=== PATIENT | female | born 1995 | race Caucasian/White ===

== ENCOUNTER 2017-02-12 12:15 | Emergency (ER) | payer BC ==
[2017-02-12 12:20] VITALS: BP 120/81; PULSE 107; RESP 22; TEMP 98.1; O2SAT 97
[2017-02-12 12:30] VITALS: PULSE 106; RESP 16
[2017-02-12] MEDS ORDERED: birth control PO (13:09)
[2017-02-12] MEDS ORDERED: TETANUS/DIPHTHERIA TOXOID ADULT 0.5 ML VIAL IM ONE (13:30)
[2017-02-12] MEDS ORDERED: AMOXICILLIN/CLAVULANATE K 875 MG TAB PO ONE (13:30)
--- NOTE | 2017-02-12 13:54 | PD ---
HPI Chief Complaint: Bite or Sting Time Seen by Provider: 13:35 Travel History International Travel<30 days: No Contact w/Intl Traveler<30days: No Traveled to known affect area: No History of Present Illness HPI 21-year-old female presents to the emergency room for evaluation of dog bite to her head, hands, and face that occurred just prior to arrival. Patient was lying next to her dog when she turned the wrong way and it attacked her. It bit her on the back of the head, bilateral hands, and one small bite on the side of her face. They all bled a moderate amount. Patient came straight to the emergency room. She reports extreme pain in the left second finger which feels swollen and is difficult to bend. She denies paresthesias. Unknown last tetanus. Dog is up-to-date on vaccinations. Patient denies chronic medical conditions or daily medications. PFSH Past Medical History Medical History: Denies Significant Hx Tetanus Vaccination: > 5 Years Influenza Vaccination: No ?: Not LMP: 02/12/17 Past Surgical History Surgical History: No Previous Surgery Social History Alcohol Use: No Tobacco Use: No Substance Use: No Allergies-Medications (Allergen,Severity, Reaction): Coded Allergies: No Known Allergies (Unverified , 02/12/17) Reported Meds & Prescriptions Reported Meds & Active Scripts Active Augmentin (Amoxicillin-Clavulanate) 875-125 Mg Tab 1 Tab PO BID 10 Days Reported [ control] Unknown Strength Unknown Dose PO DAILY Review of Systems Except as stated in HPI: all other systems reviewed are Neg Physical Exam Narrative GENERAL: Well-nourished, well-developed female in no acute distress. Afebrile. Ambulatory. SKIN: Focused skin assessment warm/dry. There are 4 1 cm lacerations to the posterior scalp that are nonbleeding and well approximated. There are several puncture wounds to bilateral hands. There is a 0.5 cm vertical laceration just lateral to the right eye. HEAD: Normocephalic. EYES: No scleral icterus. No injection or drainage. NECK: Supple, trachea midline. No JVD or lymphadenopathy. CARDIOVASCULAR: Regular rate and rhythm without murmurs, gallops, or rubs. RESPIRATORY: Breath sounds equal bilaterally. No accessory muscle use. EXTREMITY: Left finger tender to palpation. Limited range of motion secondary to pain. Mild edema of the left second finger. Less than 2 second capillary refill distally. Data Data Last Documented VS Vital Signs Date Time Temp Pulse Resp B/P Pulse Ox O2 Delivery O2 Flow Rate FiO2 02/12/17 14:43 87 16 109/68 97 Room Air 02/12/17 12:20 98.1 Orders Amoxicil-Clavulanate (Augmentin) (02/12/17 13:30) Tetanus/Diphtheria Tox Adult (Tetanus/Di (02/12/17 13:30) Wound Care (02/12/17 13:29) Finger ([id number]) (02/12/17 ) MDM Medical Decision Making Medical Screen Exam Complete: Yes Emergency Medical Condition: Yes Medical Record Reviewed: Yes Differential Diagnosis Dog bite, laceration, abrasion, fracture Narrative Course 21-year-old female presents to the emergency room after being bitten by her dog just prior to arrival. Dog is up-to-date on rabies. Patient was updated on tetanus. Wounds were all thoroughly cleansed with Betadine and hand wounds were dressed with triple antibiotic ointment. Patient has a small, 0.5 cm wound on her right lateral face. This was thoroughly cleansed and then repaired with Steri-Strips. Patient was given signs and symptoms of infection to look out for. She was given her first dose of Augmentin in the emergency room. There are multiple small abrasions/puncture wounds to the bilateral hands especially on the left second finger. Patient is having difficulty bending the finger but denies paresthesias. X-ray is negative. There are 4 1- 2 cm wounds on the posterior scalp area repaired with goldy. Patient discharged with Augmentin and told to follow-up the primary care physician or return for worsening symptoms. She understands and agrees to plan. Procedures Procedure Narrative LACERATION LOCATION: Posterior scalp, far left LENGTH: 1 cm NUMBER OF STITCHES/GOLDY: 1 staple REPAIR: The area of the laceration was prepped with Betadine and sterilely draped. Patient opted to forego lidocaine. The wound was copiously irrigated and explored without evidence of foreign body, tendon injury or neurovascular injury. The wound was closed using staple gun. This was a single layer repair. The patient was advised to keep the dressing clean and dry. Patient tolerated the procedure well. LACERATION LOCATION: Posterior scalp, second from the left LENGTH: 2 cm NUMBER OF STITCHES/GOLDY: 2 goldy REPAIR: The area of the laceration was prepped with Betadine and sterilely draped. Patient opted to forego lidocaine. The wound was copiously irrigated and explored without evidence of foreign body, tendon injury or neurovascular injury. The wound was closed using staple gun. This was a single layer repair. The patient was advised to keep the dressing clean and dry. Patient tolerated the procedure well. LACERATION LOCATION: Posterior scalp, second from the left LENGTH: 2 cm NUMBER OF STITCHES/GOLDY: 2 goldy REPAIR: The area of the laceration was prepped with Betadine and sterilely draped. Patient opted to forego lidocaine. The wound was copiously irrigated and explored without evidence of foreign body, tendon injury or neurovascular injury. The wound was closed using staple gun. This was a single layer repair. The patient was advised to keep the dressing clean and dry. Patient tolerated the procedure well. LACERATION LOCATION: Posterior scalp, far right LENGTH: 1 cm NUMBER OF STITCHES/GOLDY: 1 staple REPAIR: The area of the laceration was prepped with Betadine and sterilely draped. Patient opted to forego lidocaine. The wound was copiously irrigated and explored without evidence of foreign body, tendon injury or neurovascular injury. The wound was closed using staple gun. This was a single layer repair. The patient was advised to keep the dressing clean and dry. Patient tolerated the procedure well. Diagnosis Primary Impression: Dog bite Qualified Code: W54.0XXA - Dog bite, initial encounter Referrals: Primary Care Physician Patient Instructions: Animal Bite (ED), General Instructions Additional Instructions: Rest and drink plenty fluids. Take Augmentin as directed, until gone. Keep wounds clean and dry. Apply triple antibiotic ointment daily. Goldy out in 7 days. Follow-up with her primary care physician. Return to the emergency room for worsening symptoms. Med/Other Pt SpecificInfo: Prescription(s) given Scripts Amoxicillin-Clavulanate (Augmentin)875-125 Mg Tab1 Tab PO BID 10 Days Ref 0 Prov:David Leon MD 02/12/17 Disposition: 01 DISCHARGE HOME Condition: Stable Kimberly Patel Feb 12, 2017 13:54
--- NOTE | 2017-02-12 14:19 | RADHPO ---
EXAM DATE/TIME: 02/12/2017 13:48 [facility] COMPARISON: No previous studies available for comparison. INDICATIONS : Left second digit pain after being bitten by a dog MEDICAL HISTORY : None. SURGICAL HISTORY : None. ENCOUNTER: Initial ACUITY: 1 day PAIN SCORE: 10/10 LOCATION: Left second digit FINDINGS: Examination of the second digit of the left hand demonstrates no evidence of fracture or dislocation. No radiopaque foreign bodies are seen. The soft tissues are intact. CONCLUSION: No acute disease. Ollie Steel MD on February 12, 2017 at 14:16 Board Certified Radiologist. This report was verified electronically.
[2017-02-12 14:43] VITALS: BP 109/68; PULSE 87; RESP 16; O2SAT 97
[2017-02-12] MEDS ORDERED: AUGM875T3 PO (14:43)
== END 2017-02-12 15:16 | disposition home or self-care (01) ==
LOC: PHEFT 12:15
DX: S01.05XA Open bite of scalp, initial encounter (principal); S60.512A Abrasion of left hand, initial encounter; S60.511A Abrasion of right hand, initial encounter; S61.432A Puncture wound without foreign body of left hand, initial encounter; S61.431A Puncture wound without foreign body of right hand, initial encounter; Z23 Encounter for immunization; W54.0XXA Bitten by dog, initial encounter; Y93.89 Activity, other specified; Y92.9 Unspecified place or not applicable; Y99.8 Other external cause status
CPT/HCPCS: 12002; 73140; 90471; 90714

== ENCOUNTER 2018-09-13 23:56 | Inpatient (IN) ==
[2018-09-14] MEDS ORDERED: Oxytocin 30 Units/500ml Premix 30 UNITS/500 ML BAG IV.SIG ONE (00:36)
[2018-09-14] MEDS ORDERED: Sod Chloride 0.9% Inj 1,000 ML IV.CONT PRN (00:36)
[2018-09-14] MEDS ORDERED: Sodium Chlor 0.9% Inj 500 ML IV.SIG PRN (00:36)
[2018-09-14] MEDS ORDERED: Naloxone Inj 0.4 MG/ML Vial IV.PUSH PRN ×2 (00:36→07:44)
[2018-09-14] MEDS ORDERED: fentaNYL Citrate Inj 100 MCG/2 ML Ampul IV.PUSH PRN ×2 (00:36)
--- NOTE | 2018-09-14 00:44 | P.HPOB ---
History of Present Illness Primary Care Physician: No Primary Care Physician Dr. Serrano Chief Complaint: Contractions History of Present Illness: This patient is 23-year-old white female at [address] Serrano for care presents complaining of regular painful contractions, no bleeding or leakage of fluid. heart rate tracing is reactive she is libby every 2 minutes Weeks Gestation:: 40 Para: 0 : 2 Total # of Miscarriage(s): 1 Review of Systems All other systems reviewed negative except as stated in HPI PMFSH - Tobacco History Smoking Status: Never smoker - Alcohol History How Often Do You Have a Drink Containing Alcohol: Never - Substance Use History Substance History: No History of Abuse - Travel History History of Recent Travel: No Recent Travel in the [place] Within the Last 8 Weeks: No Recent Travel Out of the Country Within the Last 8 Weeks: No Medications and Allergies Allergies Allergy/AdvReac Type Severity Reaction Status Date / Time No Known Allergies Allergy Uncoded 02/12/17 12:23 Exam Vital signs: Vital Signs 09/14/18 00:21 Temperature 98.0 F Pulse Rate 108 H Respiratory Rate 20 Blood Pressure 130/92 H Narrative: GENERAL: Well-nourished, well-developed patient. SKIN: Warm and dry. HEAD: Normocephalic and atraumatic. EYES: No scleral icterus. No injection or drainage. ENT: No nasal drainage noted. Mucous membranes pink. Airway patent. NECK: Supple, trachea midline. No JVD. CARDIOVASCULAR: Regular rate and rhythm without murmurs, gallops, or rubs. RESPIRATORY: Breath sounds equal bilaterally. No accessory muscle use. BREASTS: Bilateral exam showed no masses , no retractions, no nipple discharge. ABDOMEN/GI: Abdomen soft, non-tender, bowel sounds present, no rebound, no guarding Gravid to [-40] weeks size Fundal Height: [-40] GENITOURINARY: External Genitalia: intact and normal in appearance BUS glands: [-] Cervix: [-post] Dilatation: [-6] Effacement: [100-] Station: [-1] Presentation: [vtx-] Membranes: [intact Uterine Contractions: [q 2 min-] FHT's: Category: [1-] Baseline: [-133] Reactive: [R-] Variability: [-mod] Decels: [-0] + accels EXTREMITIES: No cyanosis or edema. BACK: Nontender without obvious deformity. No CVA tenderness. NEUROLOGICAL: Awake and alert. Motor and sensory grossly within normal limits. Five out of 5 muscle strength in all muscle groups. Normal speech. Results - Labs Group B Strep: Negative Caprini VTE Risk Assessment Caprini VTE Risk Assessment: No/Low Risk (score <= 1) Caprini Risk Assessment Model: Point Value = 1 Point Value = 2 Point Value = 3 Point Value = 5 Age 41-60 Minor surgery BMI > 25 kg/m2 Swollen legs Varicose veins or History of unexplained or recurrent spontaneous Oral contraceptives or hormone replacement Sepsis (< 1 month) Serious lung disease, including pneumonia (< 1 month) Abnormal pulmonary function Acute myocardial infarction Congestive heart failure (< 1 month) History of inflammatory bowel disease Medical patient at bed rest Age 61-74 Arthroscopic surgery Major open surgery (> 45 min) Laparoscopic surgery (> 45 min) Malignancy Confined to bed (> 72 hours) Immobilizing plaster cast Central venous access Age >= 75 History of VTE Family history of VTE Factor V Leiden Prothrombin [id number] Lupus anticoagulant Anticardiolipin antibodies Elevated serum homocysteine Heparin-induced thrombocytopenia Other congenital or acquired thrombophilia Stroke (< 1 month) Elective arthroplasty Hip, pelvis, or leg fracture Acute spinal cord injury (< 1 month) Prophylaxis Regimen: Total Risk Factor Score Risk Level Prophylaxis Regimen 0-1 Low Early ambulation 2 Moderate Order ONE of the following: *Sequential Compression Device (SCD) *Heparin 5000 units SQ BID 3-4 Higher Order ONE of the following medications: *Heparin 5000 units SQ TID *Enoxaparin/Lovenox 40 mg SQ daily (WT < 150 kg, CrCl > 30 mL/min) *Enoxaparin/Lovenox 30 mg SQ daily (WT < 150 kg, CrCl > 10-29 mL/min) *Enoxaparin/Lovenox 30 mg SQ BID (WT < 150 kg, CrCl > 30 mL/min) AND/OR *Sequential Compression Device (SCD) 5 or more Highest Order ONE of the following medications: *Heparin 5000 units SQ TID (Preferred with Epidurals) *Enoxaparin/Lovenox 40 mg SQ daily (WT < 150 kg, CrCl > 30 mL/min) *Enoxaparin/Lovenox 30 mg SQ daily (WT < 150 kg, CrCl > 10-29 mL/min) *Enoxaparin/Lovenox 30 mg SQ BID (WT < 150 kg, CrCl > 30 mL/min) AND *Sequential Compression Device (SCD) Assessment and Plan - Diagnosis (1) 40 weeks gestation of Code(s): Z3A.40 - 40 weeks gestation of Status: Acute (2) Uterine contractions during Code(s): O62.2 - Other uterine inertia Status: Acute - Plan This primiparous patient at 40 weeks gestation and libby in labor at this time, cervix is 6/ 100/-1/cephalic, contractions are regular heart rate tracing was reactive plan for this patient is to admit to labor and delivery, manage and augment labor as needed and indicated, and likely get epidural anesthesia., Anticipate vaginal delivery
[2018-09-14] MEDS ORDERED: Citric Acid/Sodium Citrate Liq 30 ML UDC PO SCH (00:45)
[2018-09-14 01:09] LABS: Baso # (Auto) 0.1 th/mm3 (0.0-0.2); Baso % (Auto) 0.4 % (0.0-2.0); Eos % (Auto) 0.2 % (0.0-4.0); Hematocrit 31.4 % (35.0-46.0); Hemoglobin 10.3 gm/dL (11.6-15.3); Lymph # (Auto) 2.6 th/mm3 (1.0-4.8); Lymph % (Auto) 14.3 % (9.0-44.0); Mean Corpuscular HGB Conc 32.9 % (32.0-36.0); Mean Corpuscular Hemoglobin 25.7 pg (27.0-34.0); Mean Corpuscular Volume 78.3 fL (80.0-100.0); Mean Platelet Volume 8.5 fL (7.0-11.0); Mono # (Auto) 1.2 th/mm3 (0.0-0.9); Mono % (Auto) 6.6 % (0.0-8.0); Neut # (Auto) 14.1 th/mm3 (1.8-7.7); Neut % (Auto) 78.5 % (16.0-70.0); Platelet Count 249 th/mm3 (150-450); Red Blood Count 4.01 mil/mm3 (4.00-5.30); Red Cell Distribution Width 14.2 % (11.6-17.2); White Blood Count 17.9 th/mm3 (4.0-11.0)
[2018-09-14] MEDS ORDERED: fentaNYL 2MCG-Bupiv 0.125% Epi 150 ML EPIDURAL ONE (01:14)
[2018-09-14 01:23] LABS: Alanine Aminotransferase 17 U/L (10-53); Albumin 2.6 g/dL (3.4-5.0); Anion Gap 10 meq/L (5-15); Aspartate Aminotransferase 15 U/L (15-37); Blood Urea Nitrogen 9 mg/dL (7-18); Calcium 8.2 mg/dL (8.5-10.1); Carbon Dioxide 21.2 meq/L (21.0-32.0); Chloride 110 meq/L (98-107); Glomerular Filtration Rate 67 mL/min (>89); Glucose,Random 86 mg/dL (74-106); Potassium 3.9 meq/L (3.5-5.1); Sodium 141 meq/L (136-145)
[2018-09-14 01:25] LABS: Alkaline Phosphatase 241 U/L (45-117); Total Protein 6.8 g/dL (6.4-8.2)
[2018-09-14 01:26] LABS: Amorphous Sediment,Urine Rare /hpf; Bacteria,Urine Rare /hpf; Bilirubin,Urine Negative (Negative); Clarity,Urine Hazy (Clear); Color,Urine Yellow (Yellw/Straw); Glucose,Urine (UA) Negative (Negative); Leukocyte Esterase,Urine Small (Negative); Mucus,Urine Few /lpf (Occasional); Nitrite,Urine Negative (Negative); Specific Gravity,Urine 1.006 (1.002-1.035); Squamous Epithelial Cell,Urine 3 /hpf (0-5)
[2018-09-14] MEDS ORDERED: fentaNYL 2MCG-Bupiv 0.125% Epi 150 ML EPIDURAL PRN (02:03)
[2018-09-14] MEDS ORDERED: fentaNYL Citrate Inj 100 MCG/2 ML Ampul EPIDURAL ONE (02:03)
[2018-09-14] MEDS ORDERED: Lidocaine PF 1.5% Inj 20 ML Ampule ONE (03:23)
[2018-09-14] MEDS ORDERED: Bupivacaine PF 0.25% Inj 10 ML Vial ONE (03:23)
[2018-09-14] MEDS ORDERED: Oxytocin 30 Units/500ml Premix 30 UNITS/500 ML BAG IV.CONT PRN (07:44)
[2018-09-14] MEDS ORDERED: Acetaminophen 325 MG Tablet PO PRN (07:44)
[2018-09-14] MEDS ORDERED: Witch Hazel 50%/Glyderin 12.5% 40 Pad Jar RECTAL PRN (07:44)
[2018-09-14] MEDS ORDERED: Zolpidem Tartrate 5 MG Tablet PO PRN (07:44)
[2018-09-14] MEDS ORDERED: Benzocaine 20% Top Spray 60 ML Can TOPICAL PRN (07:44)
[2018-09-14] MEDS ORDERED: Bisacodyl 10 MG Supp RECTAL PRN (07:44)
--- NOTE | 2018-09-14 07:44 | P.OBDELI ---
Weeks Gestation: 40 Patient Started Active Labor: Yes Medical Induction of Labor: No Artificial Rupture of Membrane: No Anesthesia: Epidural, Lidocaine local to perineum Episiotomy: none Vaginal Delivery: Normal Presentation: Occiput anterior Nuchal Cord: None Delayed Cord Clamping (45 sec): Yes Shoulder Dystocia: Suprapubic pressure given, Doris maneuver done Placenta: Spontaneous delivery, Intact, 3 vessel cord Laceration: None, Perineal, 2 deg Repair: Chromic interrupted, Chromic running Estimated blood loss (mL): 300 Infant: Female
[2018-09-14] MEDS: Prenatal Vit/Ca/Iron/Folic Acid Tablet PO SCH (13:39)
[2018-09-14] MEDS: Senna/Docusate Sodium 8.6/50 MG Tablet PO SCH ×2 (13:39→20:41)
[2018-09-14] MEDS ORDERED: Measles/Mumps/Rubella Vaccine Inj 0.5 ML Vial SQ ONE (16:00)
[2018-09-14] MEDS ORDERED: Diphtheria/Tetanus/Pertussis Vaccine Inj 0.5 ML Syringe IM ONE (16:00)
[2018-09-15] MEDS: Senna/Docusate Sodium 8.6/50 MG Tablet PO SCH (10:50)
[2018-09-15] MEDS: Prenatal Vit/Ca/Iron/Folic Acid Tablet PO SCH (10:50)
== END 2018-09-15 15:17 | disposition home or self-care (01) | DRG 807 ==
LOC: HOBED 23:56 → H2E 09-14 00:35 → H1EA 09-14 09:35
PROVIDERS: ADMIT Obstetrics & Gynecology; ATTEND Obstetrics & Gynecology
CPT/HCPCS: 59025; 80053; 81001; 85025; 86850; 86900; 86901; 90715; 99285; J2405; J3010; J7120